=== PATIENT | female | born 1960 | race Caucasian/White ===

== ENCOUNTER 2021-07-17 10:49 | Outpatient (CLI) | payer MEDICARE, MEDICAID ==
[2021-07-17] VITALS (7 sets, daily range): BP systolic 125–147; BP diastolic 66–88; PULSE 71–79; TEMP 97.8
[~2021-07-17] VITALS: Ht 147.3 cm; Wt 72.7 kg
[~2021-07-17 10:49] MED LIST: ACID REDUCER PO; BIOTIN1 MG PO; BUSPAR DIVIDOSE15 MG PO; CALTRATE-600 W600 MG PO; ESTRACE PO; GINKO BILOBA PO; GINSENG PO; HCTZ 25MG25 MG PO; LYRICA50 MG PO; NIFEREX-150 FOR1 CA1 PO; ORPHENADRINE C100 MG PO; OXYCONTIN10 MG PO; POTASSIUM CH2 MEQ/ML PO; PRENATAL VITAMI1 TA5 PO; ROLAIDS; SLOW FE160 MG PO; SOMA 350MG350 MG/TAB PO; STOOL SOFTENER100 MG PO; VITAMIN C500 MG PO; VITAMIN E200 I1 PO; WELLBUTRIN SR150 M1 PO; XANAX0.5 MG PO
[2021-07-17] MEDS ORDERED: NORCO 325 MG-7.1 TAB PO (11:23)
[2021-07-17] MEDS ORDERED: LOPID 600M600 MG/TAB PO (11:24)
[2021-07-17] MEDS ORDERED: GLUCOPHAGE500 MG/TAB PO ×2 (11:24→11:28)
[2021-07-17] MEDS ORDERED: CYMBALTA 60MG60 MG PO (11:25)
[2021-07-17] MEDS ORDERED: NEURONTIN300 MG/CAP PO (11:26)
[2021-07-17] MEDS ORDERED: DEXILANT30 MG PO (11:26)
[2021-07-17] MEDS ORDERED: PRECOSE50 MG PO (11:27)
[2021-07-17] MEDS ORDERED: CYMBALTA 30MG30 MG PO (11:28)
[2021-07-17] MEDS ORDERED: XANAX 1MG1 MG PO (11:29)
[2021-07-17] MEDS ORDERED: DESYREL 50MG50 MG PO (11:29)
[2021-07-17] MEDS ORDERED: LIPITOR 40MG TA40 MG PO (11:30)
[2021-07-17] MEDS ORDERED: TOVIAZ4 MG PO (11:31)
[2021-07-17 12:38] LABS: CSF APPEARANCE CLEAR; CSF COLOR COLORLESS
[2021-07-17 12:44] LABS: CSF RBC 35 /mm3 (0-0)
[2021-07-17 12:51] LABS: CSF MONONUCLEAR 100 % (70-100); CSF POLYMORPHONUCLEAR 0 % (0-6)
[2021-07-17 12:54] LABS: GLUCOSE,CSF 71 mg/dL (40-70); TOTAL PROTEIN,CSF 46 mg/dL (15-45)
--- NOTE | 2021-07-17 13:36 | NUR ---
Pt is ready for departure. I reviewed dc and fu instructions r/t lumbar puncture with pt. she verbalized understanding. Pt is escorted to exit via wheelchair.
[2021-07-22 10:01] LABS: ALBUMIN CSF 30.4 mg/dL (<=27.0); ALBUMUN SERUM 4200 mg/dL (()); CSF IGG/ALBUMIN 0.11 (<=0.21); CSF,IGG 3.2 mg/dL (<=8.1)
[2021-07-22 11:13] LABS: IGG,SERUM 921 mg/dL (()); IGG/ALBUMIN SERUM 0.22 (<=0.40)
== END 2021-07-17 16:46 | disposition home or self-care (01) ==
LOC: COL.RAD 10:49
PROVIDERS: Psychiatry & Neurology Neurology
DX: R94.02 Abnormal brain scan (principal)

== ENCOUNTER → 2023-01-17 | Outpatient (CLI) | payer MEDICARE, MEDICAID ==
[~2023-01-17] MED LIST changes: +CYMBALTA 30MG30 MG PO; +CYMBALTA 60MG60 MG PO; +DESYREL 50MG50 MG PO; +DEXILANT30 MG PO; +GLUCOPHAGE500 MG/TAB PO; +LIPITOR 40MG TA40 MG PO; +LOPID 600M600 MG/TAB PO; +NEURONTIN300 MG/CAP PO; +NORCO 325 MG-7.1 TAB PO; +PRECOSE50 MG PO; +TOVIAZ4 MG PO; +XANAX 1MG1 MG PO
== END ==
LOC: COL.LAB 12:37
DX: M54.16 Radiculopathy, lumbar region (principal); M54.2 Cervicalgia; M51.36 Other intervertebral disc degeneration, lumbar region; M47.812 Spondylosis without myelopathy or radiculopathy, cervical region; E11.40 Type 2 diabetes mellitus with diabetic neuropathy, unspecified; M25.50 Pain in unspecified joint; M79.10 Myalgia, unspecified site

== ENCOUNTER → 2023-02-07 | Outpatient (CLI) | payer MEDICARE, MEDICAID | LOC: MHCPAIN 11:37 | DX: M54.16 Radiculopathy, lumbar region (principal); E10.9 Type 1 diabetes mellitus without complications; I10 Essential (primary) hypertension | CPT/HCPCS: J1100; Q9967 ==

== ENCOUNTER 2023-04-28 10:43 | Day surgery (SDC) | payer MEDICARE, MEDICAID ==
[~2023-04-28] VITALS: Ht 147.3 cm; Wt 68.6 kg
[2023-04-28 11:19] VITALS: BP 126/69; PULSE 70; TEMP 98.2
[2023-04-28] MEDS ORDERED: AMBIEN CR 12.12.5 MG PO (11:44)
[2023-04-28] MEDS ORDERED: ABILIFY5 MG PO (11:44)
[2023-04-28] MEDS ORDERED: OZEMPIC2 MG/0.75 SQ (11:45)
[2023-04-28] MEDS ORDERED: MOBIC15 MG PO (11:45)
[2023-04-28] MEDS ORDERED: LYRICA 150MG C150 MG PO (11:46)
[2023-04-28] MEDS ORDERED: COREG12.5 MG PO (11:47)
[2023-04-28] MEDS ORDERED: GLUCOTROL10 MG PO (11:48)
[2023-04-28] MEDS ORDERED: TIMOLOL MALEATE5 M1 OP (11:48)
[2023-04-28] MEDS ORDERED: XALATAN EYE DROPS OD (11:49)
[2023-04-28] MEDS ORDERED: REQUIP2 MG PO (11:49)
[2023-04-28] MEDS ORDERED: IRON TABLETS325 MG PO (11:50)
[2023-04-28 14:05] VITALS: BP 115/69; PULSE 86; TEMP 97.8
[2023-04-28 14:20] VITALS: BP 134/80; PULSE 88
[2023-04-28 14:22] VITALS: TEMP 97.8
[2023-04-28 14:30] VITALS: BP 130/69; PULSE 88
--- NOTE | 2023-04-28 14:45 | NUR ---
1405 RETURNS TO ROOM 7 PER CART. AWAKE, ALERT. RESP UNLABORED. HOB ELEVATED 45 DEGREES. VITAL SIGNS OBTAINED. DENIES DISCOMFORT. REPORTS SLIGHT URINARY URGENCY. CALL LIGHT AT SIDE. FRIEND IN ROOM 1420 HOB ELEVATED 80 DEGREES. TOLERATES PO JUICE AND PUDDING WITHOUT NAUSEA 1425 DISCHARGE INSTRUCTIONS REVIEWE. PATIENT VERBALIZES UNDERSTANDING. COPY PROVIDED IN DISCHARGE FOLDER 1435 AMBULATES TO BATHROOM WITH STANDBY ASSIST. ADMITS TO VOIDING WITHOUT DIFFICULTY. REPORTS LIGHT RED URINE WITH NO CLOTS OBSERVED
== END 2023-04-28 14:45 | disposition home or self-care (01) ==
LOC: SDCO 10:43
DX: N39.3 Stress incontinence (female) (male) (principal); N36.42 Intrinsic sphincter deficiency (ISD); G47.33 Obstructive sleep apnea (adult) (pediatric)
CPT/HCPCS: J0690; J1100; J2405; J2704; J3010; J7120; L8606

== ENCOUNTER → 2023-05-31 | Outpatient (CLI) | payer MEDICARE, MEDICAID ==
[~2023-05-31] MED LIST changes: +ABILIFY5 MG PO; +AMBIEN CR 12.12.5 MG PO; +COREG12.5 MG PO; +GLUCOTROL10 MG PO; +IRON TABLETS325 MG PO; +LYRICA 150MG C150 MG PO; +MOBIC15 MG PO; +OZEMPIC2 MG/0.75 SQ; +REQUIP2 MG PO; +TIMOLOL MALEATE5 M1 OP; +XALATAN EYE DROPS OD
== END ==
LOC: MHCPAIN 13:14
DX: M54.16 Radiculopathy, lumbar region (principal); M51.36 Other intervertebral disc degeneration, lumbar region; M54.2 Cervicalgia; M47.812 Spondylosis without myelopathy or radiculopathy, cervical region; E11.40 Type 2 diabetes mellitus with diabetic neuropathy, unspecified; G25.2 Other specified forms of tremor
CPT/HCPCS: G0463

== ENCOUNTER → 2023-08-11 | Outpatient (CLI) | payer MEDICARE, MEDICAID | LOC: MHCPAIN 08:29 | DX: M47.817 Spondylosis without myelopathy or radiculopathy, lumbosacral region (principal); M54.50 Low back pain, unspecified | CPT/HCPCS: J0665 ==

== ENCOUNTER → 2023-09-27 | Outpatient (CLI) | payer MEDICARE, MEDICAID | LOC: MHCPAIN 14:30 | DX: M54.50 Low back pain, unspecified (principal); M47.816 Spondylosis without myelopathy or radiculopathy, lumbar region; M51.36 Other intervertebral disc degeneration, lumbar region; M47.812 Spondylosis without myelopathy or radiculopathy, cervical region; M54.2 Cervicalgia; E11.40 Type 2 diabetes mellitus with diabetic neuropathy, unspecified | CPT/HCPCS: G0463 ==

== ENCOUNTER → 2024-02-23 | Outpatient (CLI) | payer MEDICARE, MEDICAID ==
[~2024-02-23] MED LIST changes: +Lidocaine PF 2% (20 MG/ML) 5 ML VIAL ONE; +Midazolam 2 MG/2 ML VIAL ONE; +fentaNYL 50 MCG/ML 2 ML VIAL ONE
== END ==
LOC: MHCPAIN 02-02 13:02
DX: M47.817 Spondylosis without myelopathy or radiculopathy, lumbosacral region (principal); M54.50 Low back pain, unspecified
CPT/HCPCS: J0665; J2250; J3010

== ENCOUNTER → 2024-04-02 | Outpatient (CLI) | payer MEDICARE, MEDICAID ==
[~2024-04-02] MED LIST changes: -Lidocaine PF 2% (20 MG/ML) 5 ML VIAL ONE; -Midazolam 2 MG/2 ML VIAL ONE; -fentaNYL 50 MCG/ML 2 ML VIAL ONE
== END ==
LOC: MHCPAIN 10:35
DX: M54.50 Low back pain, unspecified (principal); M47.816 Spondylosis without myelopathy or radiculopathy, lumbar region; M54.2 Cervicalgia; M79.18 Myalgia, other site; M47.812 Spondylosis without myelopathy or radiculopathy, cervical region
CPT/HCPCS: G0463; J0665